=== PATIENT | female | born 1960 | race Asian ===

== ENCOUNTER 2018-01-24 08:03 | Outpatient (CLI) | payer OTHER ==
[2018-01-24 08:34] LABS: BASOPHILS # (AUTO) 0.3 K/uL (0.00-0.22); BASOPHILS % (AUTO) 3.7 % (0.0-2.0); EOSINOPHILS # (AUTO) 0.2 K/uL (0-0.4); EOSINOPHILS % (AUTO) 2.1 % (0.0-4.0); HEMATOCRIT 43.6 % (36-48); HEMOGLOBIN 14.9 g/dL (12.0-16.0); LYMPHOCYTES # (AUTO) 1.6 K/uL (2.5-16.5); LYMPHOCYTES % (AUTO) 21.9 % (20.5-51.1); MEAN CORPUSCULAR HEMOGLOBIN 30 pg (27-31); MEAN CORPUSCULAR HGB CONC 34 g/dL (33-37); MEAN CORPUSCULAR VOLUME 86.7 fL (80-94); MONOCYTES # (AUTO) 0.5 K/uL (0.8-1.0); MONOCYTES % (AUTO) 7.1 % (1.7-9.3); NEUTROPHILS # (AUTO) 4.9 K/uL (1.8-7.7); NEUTROPHILS % (AUTO) 65.2 % (42.2-75.2); PLATELET COUNT (AUTO) 237 K/uL (140-450); RED BLOOD CELL COUNT(AUTO) 5.03 MIL/uL (4.20-5.40); RED CELL DISTRIBUTION WIDTH 12.5 % (11.6-13.7); WHITE BLOOD COUNT (AUTO) 7.5 K/uL (4.8-10.8)
[2018-01-24 08:41] LABS: PROTHROMBIN TIME 10.3 secs (10.8-13.4)
[2018-01-24 08:44] LABS: ALBUMIN 4.1 g/dL (3.4-5.0); ANION GAP 13.7 (8-16); BILIRUBIN,DIRECT 0.2 mg/dL (0.0-0.3); CARBON DIOXIDE 29.6 mmol/L (21-32); CHOL/HDL RATIO 4.6 (1-4.5); CREATININE 0.6 mg/dL (0.6-1.3); POTASSIUM 4.3 mmol/L (3.5-5.1)
== END 2018-01-24 18:00 | disposition home or self-care (01) ==
LOC: MLB 08:03
DX: M54.5 Low back pain (principal)
CPT/HCPCS: 36415; 72110; 80053; 82248; 82306; 85025; 85610

== ENCOUNTER 2022-10-14 09:50 | Outpatient (CLI) | payer OTHER | END 2022-10-14 20:17 | disposition home or self-care (01) | LOC: MUS 09:50 | PROVIDERS: ATTEND Internal Medicine | DX: I82.403 Acute embolism and thrombosis of unspecified deep veins of lower extremity, bilateral (principal); K76.0 Fatty (change of) liver, not elsewhere classified | CPT/HCPCS: 76705; 93970 ==